=== PATIENT | female | born 1975 | race Caucasian/White ===

== ENCOUNTER 2017-01-10 17:01 | Emergency (ER) | payer MEDICAID ==
[~2017-01-10] VITALS: Ht 165.1 cm; Wt 76.0 kg
[2017-01-10 17:25] VITALS: BP 116/68
== END 2017-01-10 20:15 | disposition home or self-care (01) ==
LOC: ER 18:05
DX: J98.8 Other specified respiratory disorders (principal)
CPT/HCPCS: 99281

== ENCOUNTER 2024-02-03 07:55 | Emergency (ER) | payer MEDICAID ==
[~2024-02-03] VITALS: Ht 165.1 cm; Wt 84.0 kg
[~2024-02-03 07:55] MED LIST: IBUP-2077 PO
[2024-02-03 07:59] VITALS: O2SAT 100
[2024-02-03] MEDS ORDERED: AMOX-494 MT (09:01)
[2024-02-03] MEDS ORDERED: IBUP-2028 MT (09:01)
[2024-02-03] MEDS: IBUPROFEN 400MG TABLET PO ONE (09:50)
[2024-02-03] MEDS: DEXAMETHASONE 4MG TABLET PO ONE (09:51)
[2024-02-03 09:58] VITALS: BP 127/85; PULSE 97; RESP 18; TEMP 98.3
== END 2024-02-03 10:26 | disposition home or self-care (01) ==
LOC: ER 07:55
DX: J02.9 Acute pharyngitis, unspecified (principal); Z90.710 Acquired absence of both cervix and uterus; Z85.528 Personal history of other malignant neoplasm of kidney
CPT/HCPCS: 81025; 99283; J8540; Z7610 ×2